=== PATIENT | male | born 1985 | race Caucasian/White ===

== ENCOUNTER 2016-07-07 15:09 | Emergency (ER) | payer SELFPAY ==
[2016-07-07 15:30] VITALS: BP 131/85
--- NOTE | 2016-07-07 16:22 | UC ---
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 Sx are improving today, but still feels very weak. 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 Has never had this severity before. - History Of Current Complaint Chief Complaint: UCUpperExtremity Stated Complaint: hand injury Time Seen by Provider: 07/07/16 16:03 Hx Obtained From: Patient ?: No Onset/Duration: Gradual Onset, Lasting Hours Severity Initially: Moderate Severity Currently: Mild Character Of Pain: Aching, Throbbing Aggravating Factor(s): Movement, Other - station detective Associated Signs And Symptoms: Positive: Weakness Related History: Dominant Hand Right - Allergies/Home Medications Allergies/Adverse Reactions: Allergies Allergy/AdvReac Type Severity Reaction Status Date / Time No Known Allergies Allergy Verified 10/02/15 15:27 PMH/Surg Hx/FS Hx/Imm Hx Endocrine History Of: Denies: Diabetes, Thyroid Disease Cardiovascular History Of: Denies: Cardiac Disorders, Hypertension Respiratory History Of: Denies: COPD, Asthma GI/ History Of: Reports: Gastroesophageal Reflux Denies: Ulcer - Surgical History Surgical History: Yes Surgery Procedure, Year, and Place: GALLBLADDER - Family History Known Family History: Positive: None, Unknown - Social History Occupation: Employed Full-time Alcohol Use: Occasionally Alcohol Amount: 1-2 beers Substance Use Type: None Smoking Status (MU): Former Smoker When Did the Patient Quit Smoking/Using Tobacco: 3 YRS AGO - Immunization History Most Recent Influenza Vaccination: has not had Most Recent Tetanus Shot: unsure Review of Systems Constitutional: Negative Skin: Negative Eyes: Negative ENT: Negative Respiratory: Negative Cardiovascular: Negative Gastrointestinal: Negative Genitourinary: Negative 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 - 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 Neurovascular: Negative Musculoskeletal: Negative Neurological: Negative Psychological: Negative All Other Systems Reviewed And Are Negative: Yes Physical Exam Triage Information Reviewed: Yes Appearance: Well-Appearing, No Pain Distress, Well-Nourished Vital Signs: Initial Vital Signs Temp 98.3 F 07/07/16 15:26 Pulse 68 07/07/16 15:26 Resp 18 07/07/16 15:26 BP 131/85 07/07/16 15:26 Pulse Ox 97 03/07/17 15:26 Vital Signs Reviewed: Yes Eye Exam: Normal Eyes: Positive: Conjunctiva Clear ENT Exam: Normal ENT: Positive: Normal ENT inspection, Hearing grossly normal, Pharynx normal, TMs normal Dental Exam: Normal Neck exam: Normal Neck: Positive: Supple, Nontender, No Lymphadenopathy Respiratory Exam: Normal Respiratory: Positive: Chest non-tender, Lungs clear, Normal breath sounds, No respiratory distress, No accessory muscle use Cardiovascular Exam: Normal Cardiovascular: Positive: RRR, No Murmur Musculoskeletal Exam: Other - pain in R forearm with use of flexor tendons Musculoskeletal: Positive: Strength 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 If you cannot return to your normal work by Wednesday, please contact the orthopedic referral listed here.
== END 2016-07-07 16:28 | disposition home or self-care (01) ==
LOC: UCEAST 15:09
DX: M77.9 Enthesopathy, unspecified (principal); M79.631 Pain in right forearm
CPT/HCPCS: 99211; G0463

== ENCOUNTER 2016-07-16 15:08 | Emergency (ER) | payer OTHER ==
[2016-07-16 15:23] VITALS: BP 115/80
[2016-07-16] MEDS ORDERED: Lidocaine 2% PF* 5 ML VIAL ONE (16:10)
--- NOTE | 2016-07-16 16:45 | UC ---
Skin Complaint HPI - HPI Summary HPI Summary: HAS HAD ABSCESS ON BACK OFR ABOUT 8 YEARS THAT REOCCURS AND RESOLVES. HAS HAD IT ONLY TREATED WITH ANTIBIOTICS IN [place]. NO FEVER. NO DISCHARGE. ABSCESS RETURNED AGAIN OVER LAST WEEK. - History of Current Complaint Chief Complaint: UCSkin Time Seen by Provider: 07/16/16 15:51 Stated Complaint: ABCESS ON BACK Hx Obtained From: Patient Onset/Duration: Gradual Onset, Lasting Weeks, Still Present Skin Exposure Onset/Duration: Weeks Ago Onset Severity: Mild Current Severity: Mild Location: Discrete - RIGHT BACK Character: Swelling, Redness, Raised, Painful Aggravating: Touch Alleviating: Nothing Associated Signs & Symptoms: Positive: Tenderness. Negative: Fever, Drainage, Red Streaks - Allergy/Home Medications Allergies/Adverse Reactions: Allergies Allergy/AdvReac Type Severity Reaction Status Date / Time No Known Allergies Allergy Verified 10/02/15 15:27 Home Medications: Home Medications Famotidine [Pepcid AC] 07/16/16 [History] Review of Systems Constitutional: Negative Skin: Other - ABSCESS RIGHT BACK Eyes: Negative ENT: Negative Respiratory: Negative Cardiovascular: Negative Gastrointestinal: Negative Genitourinary: Negative Motor: Negative Neurovascular: Negative Musculoskeletal: Negative Neurological: Negative Psychological: Negative All Other Systems Reviewed And Are Negative: Yes PMH/Surg Hx/FS Hx/Imm Hx Previously Healthy: Yes Endocrine History Of: Denies: Diabetes, Thyroid Disease Cardiovascular History Of: Denies: Cardiac Disorders, Hypertension Respiratory History Of: Denies: COPD, Asthma GI/ History Of: Reports: Gastroesophageal Reflux Denies: Ulcer - Surgical History Surgical History: Yes Surgery Procedure, Year, and Place: GALLBLADDER - Family History Known Family History: Positive: None, Unknown Negative: Diabetes, Other - NO MRSA - Social History Occupation: Employed Full-time Lives: With Family Alcohol Use: Occasionally Alcohol Amount: 1-2 beers Substance Use Type: Marijuana Smoking Status (MU): Former Smoker When Did the Patient Quit Smoking/Using Tobacco: 3 YRS AGO - Immunization History Most Recent Influenza Vaccination: has not had Most Recent Tetanus Shot: unsure Physical Exam Triage Information Reviewed: Yes Appearance: Well-Appearing, No Pain Distress, Well-Nourished Vital Signs: Initial Vital Signs Temp 97.0 F 07/16/16 15:14 Pulse 79 07/16/16 15:14 Resp 18 07/16/16 15:14 BP 115/80 07/16/16 15:14 Pulse Ox 98 07/16/16 15:14 Vital Signs Reviewed: Yes Eye Exam: Normal Eyes: Positive: Conjunctiva Clear ENT Exam: Normal ENT: Positive: Normal ENT inspection, Hearing grossly normal, TMs normal Dental Exam: Normal Neck exam: Normal Neck: Positive: Supple, Nontender, No Lymphadenopathy Respiratory Exam: Normal Respiratory: Positive: Chest non-tender, Lungs clear, Normal breath sounds, No respiratory distress, No accessory muscle use Cardiovascular Exam: Normal Cardiovascular: Positive: RRR, No Murmur, Pulses Normal Abdominal Exam: Normal Abdomen Description: Positive: Nontender, No Organomegaly Musculoskeletal Exam: Normal Neurological Exam: Normal Psychological Exam: Normal Skin: Positive: Other - 2CM X 2CM ABSCESS RIGHT BACK Course/Dx - Differential Diagnoses - Skin Complaint Differential Diagnoses: Abscess, Cellulitis, MRSA - Diagnoses Provider Diagnoses: SEBACEOUS CYST RIGHT BACK. INCISION AND DRAINAGE OF ABSCESS Procedures - Procedure Summary Procedure Summary: INCISION AND DRAINAGE OF RIGHT BACK ABSCESS, ABSCESS INCISED WITH #11 BLADE SCALPEL. PURULENT DISCHARGE EXPRESSED AND CULTURED. 3CM WICK APPLIED TO INCISED ABSCESS. Discharge - Discharge Plan Condition: Stable Disposition: HOME Prescriptions: Sulfamethox/Trimethoprim DS* [Bactrim DS 800/160 TAB*] 1 tab PO BID #20 tab Patient Education Materials: Abscess Incision and Drainage (ED), Epidermal Inclusion Cysts (ED), Abscess Follow-up (ED) Referrals: [facility] [place] [facility] [Outside] No Primary Care Phys,NOPCP [Primary Care Provider] - Additional Instructions: COME BACK IN THREE DAYS TO HAVE ABSCESS EVALUATED AND WICK POSSIBLY REMOVED Images Front/Back of Body, Lg ([place]): 1 - INDURATED ABSCESS WITH FLUCTUANT CENTER
== END 2016-07-16 17:14 | disposition home or self-care (01) ==
LOC: UCEAST 15:08
DX: L72.3 Sebaceous cyst (principal); Z87.891 Personal history of nicotine dependence
CPT/HCPCS: 10060; 87070; 87205; 87640; 87641; 99212; G0463

== ENCOUNTER 2016-07-19 09:16 | Emergency (ER) | payer OTHER ==
[2016-07-19 09:31] VITALS: BP 122/78
--- NOTE | 2016-07-19 10:49 | UC ---
HPI Wound/Suture Re-check - HPI Summary HPI Summary: ABSCESS ON BACK 07/16/16 INCISED, DRAINED, AND WICK PLACED. PUT ON BACTRIM, BUT CULTURE SHOWED NO MRSA. ANOTHER PROVIDER CALLED AND TOLD PATIENT TO STOP TAKING BACTRIM. NO COMPLICATIONS WITH INCISION. NO FEVER. SOME REDNESS AT WOUND SITE, WICK STILL IN PLACE. - History Of Current Complaint Chief Complaint: UCSkin Stated Complaint: WOUND CHECK Time Seen by Provider: 07/19/16 10:07 Hx Obtained From: Patient Onset/Duration: Gradual Onset, Lasting Weeks, Still Present Severity: Moderate - Allergies/Home Medications Allergies/Adverse Reactions: Allergies Allergy/AdvReac Type Severity Reaction Status Date / Time No Known Allergies Allergy Verified 07/19/16 09:24 PMH/Surg Hx/FS Hx/Imm Hx Previously Healthy: Yes Endocrine History Of: Denies: Diabetes, Thyroid Disease Cardiovascular History Of: Denies: Cardiac Disorders, Hypertension Respiratory History Of: Denies: COPD, Asthma GI/ History Of: Reports: Gastroesophageal Reflux Denies: Ulcer - Surgical History Surgical History: Yes Surgery Procedure, Year, and Place: GALLBLADDER - Family History Known Family History: Positive: None, Unknown Negative: Diabetes, Other - NO MRSA - Social History Occupation: Employed Full-time Lives: With Family Alcohol Use: Occasionally Alcohol Amount: 1-2 beers Substance Use Type: Marijuana Smoking Status (MU): Former Smoker When Did the Patient Quit Smoking/Using Tobacco: 3 YRS AGO - Immunization History Most Recent Influenza Vaccination: has not had Most Recent Tetanus Shot: unsure Review of Systems Constitutional: Negative Skin: Other - DRAINAGE AND MILD REDNESS AT WOUND SITE Eyes: Negative ENT: Negative Respiratory: Negative Cardiovascular: Negative Gastrointestinal: Negative Genitourinary: Negative Motor: Negative Neurovascular: Negative Musculoskeletal: Negative Neurological: Negative Psychological: Negative All Other Systems Reviewed And Are Negative: Yes Physical Exam Triage Information Reviewed: Yes Appearance: Well-Appearing, No Pain Distress, Well-Nourished Vital Signs: Initial Vital Signs Temp 97.9 F 07/19/16 09:26 Pulse 70 07/19/16 09:26 Resp 16 07/19/16 09:26 BP 122/78 07/19/16 09:26 Pulse Ox 96 07/19/16 09:26 Vital Signs Reviewed: Yes Eye Exam: Normal ENT Exam: Normal ENT: Positive: Normal ENT inspection, Hearing grossly normal, TMs normal Dental Exam: Normal Neck exam: Normal Neck: Positive: Supple, Nontender Respiratory Exam: Normal Respiratory: Positive: Chest non-tender, Lungs clear, Normal breath sounds Cardiovascular Exam: Normal Cardiovascular: Positive: RRR, No Murmur, Pulses Normal Abdominal Exam: Normal Abdomen Description: Positive: Nontender, No Organomegaly Musculoskeletal Exam: Normal Neurological Exam: Normal Psychological Exam: Normal Psychological: Positive: Normal Response To Family Skin: Positive: Other - WICK REMOVED WITH SOME PURULENCE COLLECTED ON WICK. SMALL MARGIN OF ERRETHEMA AROUND INCISION SITE. Course/Dx - Differential Dx - Laceration/Wound Differential Diagnoses: Abscess, Healing Wound Provider Diagnoses: BACK ABSCESS STATUS POST INCISION AND DRAINAGE. MILD CELLULITIS ON BACK SURROUNDING ABSCESS Discharge - Discharge Plan Condition: Stable Disposition: HOME Prescriptions: Cephalexin CAP* [Keflex CAP*] 500 mg PO QID #28 cap Patient Education Materials: Cellulitis (ED), Abscess (ED), Abscess Follow-up ( ED) [place]errals[place] [facility] [place]] No Primary Care Phys,NOPCP [Primary Care Provider] -
== END 2016-07-19 10:37 | disposition home or self-care (01) ==
LOC: UCEAST 09:16
DX: L03.312 Cellulitis of back [any part except buttock and flank] (principal); Z87.891 Personal history of nicotine dependence; Z98.890 Other specified postprocedural states
CPT/HCPCS: 99212; G0463

== ENCOUNTER 2016-08-27 07:11 | Emergency (ER) | payer OTHER ==
[2016-08-27 07:24] VITALS: BP 139/77
--- NOTE | 2016-08-27 07:49 | RAD ---
INDICATION: Fall. Right ankle pain COMPARISON: None TECHNIQUE: AP, lateral, and oblique views were obtained. FINDINGS: The bony structures, joint spaces, and soft tissues are normal for age. IMPRESSION: NEGATIVE EXAMINATION.
--- NOTE | 2016-08-27 07:50 | RAD ---
INDICATION: Fall right foot pain COMPARISON: None TECHNIQUE: AP, lateral, and oblique views were obtained. FINDINGS: The bony structures, joint spaces, and soft tissues are normal for age. IMPRESSION: NEGATIVE EXAMINATION.
--- NOTE | 2016-08-27 08:21 | UC ---
Luis Borjas Billy, scribed for IsaiMagdy merrill MD on 08/27/16 at 0758 . Lower Extremity/Ankle HPI - HPI Summary HPI Summary: In Room Note: This is a 31 year-old male coming to [facility] for evaluation of right ankle and foot pain after a mechanical fall down the stairs at 0630 today. He denies any LOC or truama to the head, neck, trunk, or back. His right lower extremity pain is worse with any movement or weightbearing. He states that he stands for long periods of time at work. Note: Vital signs stable, afebrile. Right ankle injury. Systolic BP 139. Pulse ox 97 on room air. Nurse's Note: Pt he fell down the stairs approx 0630 today. Pt complains of pain in right foot/ankle. Pt denies any LOC or hitting head, neck or back. - History of Current Complaint Chief Complaint: UCLowerExtremity Stated Complaint: FELL-RT ANKLE,FOOT PAIN Time Seen by Provider: 08/27/16 07:12 Hx Obtained From: Patient Onset/Duration: Sudden Onset, Lasting Hours, Still Present Severity Initially: Moderate Severity Currently: Moderate Pain Intensity: 9 Pain Scale Used: 0-10 Numeric Aggravating Factor(s): Standing, Ambulation Alleviating Factor(s): Rest, Elevation Able to Bear Weight: Yes - Allergies/Home Medications Allergies/Adverse Reactions: Allergies Allergy/AdvReac Type Severity Reaction Status Date / Time No Known Allergies Allergy Verified 08/27/16 07:17 PMH/Surg Hx/FS Hx/Imm Hx - Additional Past Medical History Additional PMH: Previous fractures to the right leg. Endocrine History Of: Denies: Diabetes, Thyroid Disease Cardiovascular History Of: Denies: Cardiac Disorders, Hypertension Respiratory History Of: Denies: COPD, Asthma GI/ History Of: Reports: Gastroesophageal Reflux Denies: Ulcer - Surgical History Surgical History: Yes Surgery Procedure, Year, and Place: GALLBLADDER - Family History Known Family History: Positive: Cardiac Disease, Diabetes - Social History Alcohol Use: Occasionally Alcohol Amount: 1-2 beers Substance Use Type: Marijuana Smoking Status (MU): Former Smoker When Did the Patient Quit Smoking/Using Tobacco: 3 YRS AGO - Immunization History Most Recent Influenza Vaccination: has not had Most Recent Tetanus Shot: unsure Review of Systems Constitutional: Negative Skin: Negative Eyes: Negative ENT: Negative Respiratory: Negative Cardiovascular: Negative Gastrointestinal: Negative Genitourinary: Negative Motor: Negative Neurovascular: Negative Musculoskeletal: Arthralgia Neurological: Negative Psychological: Negative All Other Systems Reviewed And Are Negative: Yes Physical Exam Triage Information Reviewed: Yes Appearance: Well-Appearing, No Pain Distress, Well-Nourished Vital Signs: Initial Vital Signs Temp 97.4 F 08/27/16 07:20 Pulse 62 08/27/16 07:20 Resp 16 08/27/16 07:20 BP 139/77 08/27/16 07:20 Pulse Ox 97 08/27/16 07:20 Vital Signs Reviewed: Yes Eyes: Positive: Conjunctiva Clear ENT: Positive: Hearing grossly normal, Pharynx normal, TMs normal. Negative: Muffled/hoarse voice Neck: Positive: Supple, No Lymphadenopathy Respiratory: Positive: Chest non-tender, Lungs clear, Normal breath sounds, No respiratory distress Cardiovascular: Positive: RRR, No Murmur Abdomen Description: Positive: Nontender, No Organomegaly, Soft Bowel Sounds: Positive: Present Musculoskeletal: Positive: Strength Intact, Other: - Negative anterior drawer sign. Swelling in the lateral aspect of right ankle. No pain in the fifth metatarsal. Mild discomfort to anterior talofibular ligament Neurological: Positive: Alert Psychological: Positive: Age Appropriate Behavior Skin: Negative: rashes Diagnostics - Radiology Right Foot X-ray Xray Interpretation: No Acute Changes Radiology Interpretation Completed By: Radiologist Right Ankle X-ray Xray Interpretation: No Acute Changes Radiology Interpretation Completed By: Radiologist Lower Extremity Course/Dx - Course Course Of Treatment: This is a 31 year-old male coming to [facility] for evaluation of right ankle and foot pain after a mechanical fall today. X-rays of the foot and ankle show no acute findings. Examination is consistent with ankle sprain, which was discussed with the patient. He will be using crutches and a gel cast and slowly advance activity as tolerateD, and discharged home. Medications have been included in the original chart and reviewed. Patient is Urgent/ Emergent. BP elevated due to current condition w/o HTN in PMH. - Differential Dx/Diagnosis Provider Diagnoses: first degree ankle sprain Discharge - Discharge Plan Condition: Stable Disposition: HOME Patient Education Materials: Ankle Sprain (ED) Forms: *Work Release Referrals: [facility] [place] [facility] [Outside] Additional Instructions: As we discussed: You have sprained your ankle. Ibuprofen, 400mg, and acetaminophen 1000mg together can be used for pain. Up to four times a day. Use gelcast, emma, crutches. Add weight as you become more comfortable. After standing, elevate, ice, rest. "If it hurts, don't do it." The documentation as recorded by the leannibLuis crowe Billy accurately reflects the service I personally performed and the decisions made by me, Magdy Butt MD.
== END 2016-08-27 08:31 | disposition home or self-care (01) ==
LOC: UCEAST 07:11
DX: S93.401A Sprain of unspecified ligament of right ankle, initial encounter (principal); W10.9XXA Fall (on) (from) unspecified stairs and steps, initial encounter; Y93.9 Activity, unspecified; Y92.9 Unspecified place or not applicable; K21.9 Gastro-esophageal reflux disease without esophagitis; Z90.49 Acquired absence of other specified parts of digestive tract; Z87.891 Personal history of nicotine dependence
CPT/HCPCS: 99213; G0463

== ENCOUNTER 2016-11-18 07:12 | Emergency (ER) | payer OTHER ==
[2016-11-18 07:31] VITALS: BP 111/64
--- NOTE | 2016-11-18 08:04 | UC ---
Lower Extremity/Ankle HPI - HPI Summary HPI Summary: PT HAS HAD INTERMITTENT RIGHT LOWER LEG PAIN SINCE INJURY 2006. THIS MORNING WOKE UP WITH SEVERE LEG CRAMP/MUSCLE SPASM. RIGHT CALF WAS FIRM AND ANKLE WAS STUCK IN EXTENSION. PT REPORTS HE WAS UNABLE TO LOOSEN THE SPASM AND WAS SCARED SO CAME DIRECTLY HERE. BROTHER DROVE HIM. SINCE BEING HERE THE SPASM HAS LET UP. HE STILL HAS RESIDUAL SORENESS TO THE CALF. NO RECENT TRAVEL. NON SMOKER. - History of Current Complaint Chief Complaint: UCLowerExtremity Stated Complaint: MUSCLE PAIN Time Seen by Provider: 11/18/16 07:53 Hx Obtained From: Patient Onset/Duration: Sudden Onset, Lasting Hours, Resolved Severity Initially: Moderate Severity Currently: Mild Pain Intensity: 4 Pain Scale Used: 0-10 Numeric Aggravating Factor(s): Ambulation Alleviating Factor(s): Rest Able to Bear Weight: Yes - Allergies/Home Medications Allergies/Adverse Reactions: Allergies Allergy/AdvReac Type Severity Reaction Status Date / Time No Known Allergies Allergy Verified 11/18/16 07:31 Home Medications: Home Medications NK [No Home Medications Reported] 11/18/16 [History Confirmed 11/18/16] PMH/Surg Hx/FS Hx/Imm Hx Previously Healthy: Yes - Surgical History Surgical History: Yes Surgery Procedure, Year, and Place: GALLBLADDER - Family History Known Family History: Positive: Unknown, Cardiac Disease, Diabetes Negative: Other - NO MRSA - Social History Alcohol Use: Rare Alcohol Amount: 1-2 beers Substance Use Type: Marijuana Substance Use Comment - Amount & Last Used: weekly usage Smoking Status (MU): Former Smoker Type: Cigarettes Amount Used/How Often: 1 ppd Length of Time of Smoking/Using Tobacco: 10 yrs Have You Smoked in the Last Year: No When Did the Patient Quit Smoking/Using Tobacco: 2011 - Immunization History Most Recent Influenza Vaccination: has not had Most Recent Tetanus Shot: unsure Review of Systems Constitutional: Negative Skin: Negative Respiratory: Negative Cardiovascular: Negative Gastrointestinal: Negative Musculoskeletal: Calf Tenderness, Myalgia All Other Systems Reviewed And Are Negative: Yes Physical Exam Triage Information Reviewed: Yes Appearance: Well-Appearing, No Pain Distress, Well-Nourished Vital Signs: Initial Vital Signs Temp 97.6 F 11/18/16 07:28 Pulse 71 11/18/16 07:28 Resp 16 11/18/16 07:28 BP 111/64 11/18/16 07:28 Pulse Ox 98 11/18/16 07:28 Vital Signs Reviewed: Yes Eyes: Positive: Conjunctiva Clear ENT: Positive: Hearing grossly normal Neck: Positive: Supple Respiratory Exam: Normal Cardiovascular Exam: Normal Abdomen Description: Positive: Soft Musculoskeletal: Positive: No Edema, Other: - RIGHT CALF TENDERNESS. 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 Neurological: Positive: Alert Psychological: Positive: Age Appropriate Behavior Skin: Negative: rashes Diagnostics - Radiology RLE US Xray Interpretation: No Acute Changes Radiology Interpretation Completed By: Radiologist Lower Extremity Course/Dx - Differential Dx/Diagnosis Provider Diagnoses: MUSCLE CRAMP RIGHT CALF Discharge - Discharge Plan Condition: Stable Disposition: HOME Patient Education Materials: Leg Cramps (ED) Forms: *Work Release Referrals: Jabier Dickerson MD [Medical Doctor] - If Needed Additional Instructions: ULTRASOUND NEGATIVE FOR BLOOD CLOT. REST, STRETCH, MASSAGE, USE HEAT. SEEK FOLLOW-UP IF NOT CONTINUING TO IMPROVE. OTC IBUPROFEN NEEDED FOR DISCOMFORT.
--- NOTE | 2016-11-18 10:12 | RAD ---
INDICATION: Right calf pain. COMPARISON: There are no prior studies available for comparison. TECHNIQUE: Multiple real-time, color flow and Doppler tracings of the right lower extremity were obtained. FINDINGS: The common femoral, femoral, profunda femoral and popliteal veins all demonstrate normal compressibility, augmentation with compression and phasic response with respiration. The posterior tibial and peroneal veins demonstrate normal compressibility and augmentation with compression. IMPRESSION: NO EVIDENCE FOR DEEP VENOUS THROMBOSIS.
== END 2016-11-18 10:42 | disposition home or self-care (01) ==
LOC: UCEAST 07:12
DX: R25.2 Cramp and spasm (principal); Z87.891 Personal history of nicotine dependence
CPT/HCPCS: 99211; G0463

== ENCOUNTER 2016-12-30 08:41 | Emergency (ER) | payer OTHER ==
[2016-12-30 08:52] VITALS: BP 92/61
--- NOTE | 2016-12-30 08:56 | UC ---
Eye Complaint HPI - HPI Summary HPI Summary: 31 YEAR OLD MALE PRESENTS WITH COMPLAINS OF LEFT EYE PAIN WITH NO TRAUMA. ON A SIDE NOTE THE PATIENT DOES WEAR SAFETY GOGGLES. - History of Current Complaint Chief Complaint: UCEye Stated Complaint: EYE PAIN Time Seen by Provider: 12/30/16 08:54 Hx Obtained From: Patient Onset/Duration: Sudden Onset Severity Initially: Moderate Severity Currently: Moderate Pain Scale Used: 0-10 Numeric - 4 - Allergies/Home Medications Allergies/Adverse Reactions: Allergies Allergy/AdvReac Type Severity Reaction Status Date / Time No Known Allergies Allergy Verified 11/18/16 07:31 PMH/Surg Hx/FS Hx/Imm Hx Previously Healthy: Yes - Surgical History Surgical History: Yes Surgery Procedure, Year, and Place: GALLBLADDER - Family History Known Family History: Positive: None, Unknown, Cardiac Disease, Diabetes Negative: Other - NO MRSA - Social History Alcohol Use: Rare Alcohol Amount: 1-2 beers Substance Use Type: Marijuana Substance Use Comment - Amount & Last Used: weekly usage Smoking Status (MU): Former Smoker Type: Cigarettes Amount Used/How Often: 1 ppd Length of Time of Smoking/Using Tobacco: 10 yrs Have You Smoked in the Last Year: No When Did the Patient Quit Smoking/Using Tobacco: 2011 - Immunization History Most Recent Influenza Vaccination: has not had Most Recent Tetanus Shot: unsure Review of Systems Constitutional: Negative Skin: Negative Eyes: Eye Redness, Other - RIGHT FACIAL/ORBITAL PAIN ENT: Negative Respiratory: Negative Cardiovascular: Negative Gastrointestinal: Negative Genitourinary: Negative Motor: Negative Neurovascular: Negative Musculoskeletal: Negative Neurological: Negative Psychological: Negative All Other Systems Reviewed And Are Negative: Yes Physical Exam Triage Information Reviewed: Yes Vital Signs: Initial Vital Signs Temp 37.1 C 12/30/16 08:45 Pulse 65 12/30/16 08:45 Resp 16 12/30/16 08:45 BP 92/61 12/30/16 08:45 Pulse Ox 98 12/30/16 08:45 Eye Exam: Normal Eyes: Positive: Other: - EYE PAIN ENT Exam: Normal Dental Exam: Normal Neck exam: Normal Neck: Positive: 1 Respiratory Exam: Normal Cardiovascular Exam: Normal Abdominal Exam: Normal Musculoskeletal Exam: Normal Neurological Exam: Normal Psychological Exam: Normal Skin Exam: Normal Eye Complaint Course/Dx - Differential Dx/Diagnosis Provider Diagnoses: RIGHT EYE PAIN. RIGHT ORBITAL PAIN Discharge - Discharge Plan Condition: Stable Disposition: HOME Prescriptions: Polymyx/Trimethoprim OPTH* [Polytrim OPHTH*] 1 drop RIGHT EYE Q3H #1 btl Referrals: No Primary Care Phys,NOPCP [Primary Care Provider] - Mervin Guerrero MD [Medical Doctor] -
== END 2016-12-30 09:07 | disposition home or self-care (01) ==
LOC: UCEAST 08:41
DX: H57.11 Ocular pain, right eye (principal); Z87.891 Personal history of nicotine dependence
CPT/HCPCS: 99212; G0463

== ENCOUNTER 2017-06-03 11:44 | Emergency (ER) | payer OTHER ==
[2017-06-03 14:04] VITALS: BP 117/78
[2017-06-03] MEDS ORDERED: Ketorolac INJ* 60 MG/2 ML VIAL IM ONE (14:22)
--- NOTE | 2017-06-04 21:59 | UC ---
Myrna Borjas Nilda, scribed for Justus Colbert MD on 06/03/17 at 1421 . Back Pain HPI - HPI Summary HPI Summary: This patient is a 32 year old M presenting to [facility] [place] with a chief complaint of constant upper back pain for the past 4 days. Pt notes he woke up on the couch with the pain. The patient rates the pain 5/10 in severity. Symptoms aggravated by movement and palpation and alleviated by rest. Patient denies abnormal urinary symptoms, CP, and SOB. Pt states he does no heavy lifting but tedious and repetitive movements. Pt states hes on no medications. - History of Current Complaint Chief Complaint: UCBackPain Stated Complaint: BACK PAIN Time Seen by Provider: 06/03/17 13:57 Hx Obtained From: Patient Onset/Duration: Sudden Onset, Lasting Days, Still Present Timing: Constant Severity Currently: Moderate Pain Intensity: 5 Pain Scale Used: 0-10 Numeric Back Pain: Is Discrete @ - upper back Aggravating Factor(s): Movement, Other - palpation Alleviating Factor(s): Rest Associated Signs And Symptoms: Positive: Other - denies abnormal urinary symptoms, CP, and SOB. - Allergies/Home Medications Allergies/Adverse Reactions: Allergies Allergy/AdvReac Type Severity Reaction Status Date / Time No Known Allergies Allergy Verified 06/03/17 13:59 Home Medications: Home Medications Naproxen Sodium [Naproxen Sodium 220 mg cap] 2 tab PO Q12HR PRN 06/03/17 [ History Confirmed 06/03/17] PMH/Surg Hx/FS Hx/Imm Hx Previously Healthy: Yes - Surgical History Surgical History: Yes Surgery Procedure, Year, and Place: GALLBLADDER - Family History Known Family History: Positive: Cardiac Disease, Diabetes Negative: Other - NO MRSA - Social History Alcohol Use: Rare Alcohol Amount: 1-2 beers Substance Use Type: Marijuana Substance Use Comment - Amount & Last Used: occassionally Smoking Status (MU): Former Smoker Type: Cigarettes Amount Used/How Often: 1 ppd Length of Time of Smoking/Using Tobacco: 10 yrs Have You Smoked in the Last Year: No When Did the Patient Quit Smoking/Using Tobacco: 2011 - Immunization History Most Recent Influenza Vaccination: has not had Most Recent Tetanus Shot: unsure Review of Systems Respiratory: Other - negative SOB Cardiovascular: Other - negative CP Genitourinary: Other - negative abnormal urinary symptoms Musculoskeletal: Other: - upper back pain All Other Systems Reviewed And Are Negative: Yes Physical Exam Triage Information Reviewed: Yes Vital Signs: Initial Vital Signs Temp 97.7 F 06/03/17 13:59 Pulse 59 06/03/17 13:59 Resp 16 06/03/17 13:59 BP 117/78 06/03/17 13:59 Pulse Ox 99 06/03/17 13:59 Vital Signs Reviewed: Yes - Additional Comments VITAL SIGNS: Reviewed. GENERAL: Patient is a well developed and nourished male who is sitting comfortable in the stretcher. Patient is not in any acute respiratory distress. HEAD AND FACE: Normacephalic and atraumatic. EYES: PERRLA, EOMI x 2, EARS: Hearing grossly intact. MOUTH: Oropharynx within normal limits. NECK: Supple, trachea is midline, no adenopathy, no JVD, no carotid bruit, no c- spine tenderness, neck with full ROM. CHEST: Symmetric, no tenderness at palpation LUNGS: CTA B/L. No wheezing or crackles. CVS: RRR, S1 and S2 present, no murmurs or gallops appreciated. ABDOMEN: Soft, NT, No distention. Normal BS. EXTREMITIES: FROM in all major joints, no edema, no cyanosis or clubbing. BACK: positive left paraspinal muscle tenderness in the T spine NEURO: Alert and oriented x 3. No acute neurological deficits. Speech is normal and follows commands. SKIN: Dry and warm Back Pain Course/Dx - Course Course Of Treatment: This patient is a 32 year old M presenting to [facility] [place] with a chief complaint of constant upper back pain for the past 4 days. Pt notes he woke up on the couch with the pain. The patient rates the pain 5/10 in severity. Symptoms aggravated by movement and palpation and alleviated by rest. Patient denies abnormal urinary symptoms, CP, and SOB. Pt states he does no heavy lifting but tedious and repetitive movements. Pt states hes on no medications. He was given Toradol in UC. Pt is stable will be D/C with a Dx of Back pain and a prescription for Robaxin, Naproxen, and Ultram. I discussed all the findings and test results with the patient. Pt was instructed to return to the urgent care or go to ER immediately if any of the symptoms return or worsens. Plan of care was discussed with the patient and pt understands and agrees. All questions were answered to patient satisfaction. There were no further complaints or concerns. - Differential Dx/Diagnosis Differential Diagnosis/HQI/PQRI: Fracture, Herniated Disc, Strain, Sprain Provider Diagnoses: back pain Discharge - Discharge Plan Condition: Stable Disposition: HOME Prescriptions: Methocarbamol [Robaxin-750 MG TAB] 750 mg PO TID #9 tab Naproxen [Naproxen DR 500 MG TAB] 500 mg PO BID #20 tab traMADol TAB* [Ultram*] 50 mg PO Q6HR PRN #12 tab MDD 4 PRN Reason: Pain Patient Education Materials: Back Pain (ED) Forms: *Work Release Referrals: [facility] [Outside] No Primary Care Phys,NOPCP [Primary Care Provider] - Additional Instructions: Do not drive when taking Ultram Take medications as indicated The documentation as recorded by the Myrna rob Nilda accurately reflects the service I personally performed and the decisions made by Filemon thomas Walter, MD.
== END 2017-06-03 14:36 | disposition home or self-care (01) ==
LOC: UCEAST 11:44
DX: M54.6 Pain in thoracic spine (principal); Z90.49 Acquired absence of other specified parts of digestive tract; F12.90 Cannabis use, unspecified, uncomplicated; Z87.891 Personal history of nicotine dependence
CPT/HCPCS: 99212; G0463; J1885

== ENCOUNTER 2017-06-23 11:05 | Emergency (ER) | payer OTHER | END 2017-06-23 11:55 | disposition left against medical advice (07) | LOC: UCEAST 11:05 | DX: S69.90XA Unspecified injury of unspecified wrist, hand and finger(s), initial encounter (principal); X58.XXXA Exposure to other specified factors, initial encounter; Y93.9 Activity, unspecified; Y92.9 Unspecified place or not applicable; Z53.21 Procedure and treatment not carried out due to patient leaving prior to being seen by health care provider ==

== ENCOUNTER 2017-06-23 16:26 | Emergency (ER) | payer OTHER ==
[2017-06-23 17:21] VITALS: BP 117/81
--- NOTE | 2017-06-23 18:14 | UC ---
Hand/Wrist HPI - HPI Summary HPI Summary: right thumb pain and pain and swelling in web space---no injury or fb. 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 and thumbs hurts worse after work - History Of Current Complaint Chief Complaint: UCUpperExtremity Stated Complaint: HAND PAIN Time Seen by Provider: 06/23/17 18:06 Hx Obtained From: Patient ?: No Mechanism Of Injury: repeatetive stress Onset/Duration: Gradual Onset, Lasting Weeks, Still Present Severity Initially: Moderate Severity Currently: Moderate Pain Intensity: 2 Pain Scale Used: 0-10 Numeric Character Of Pain: Aching, Throbbing, Stiffness Aggravating Factor(s): Movement, Lifting Alleviating Factor(s): Rest Associated Signs And Symptoms: Positive: Swelling Related History: Dominant Hand Right - Allergies/Home Medications Allergies/Adverse Reactions: Allergies Allergy/AdvReac Type Severity Reaction Status Date / Time No Known Allergies Allergy Verified 06/23/17 17:12 PMH/Surg Hx/FS Hx/Imm Hx Previously Healthy: Yes - Surgical History Surgical History: Yes Surgery Procedure, Year, and Place: GALLBLADDER removed - Family History Known Family History: Positive: None, Unknown, Cardiac Disease, Diabetes Negative: Other - NO MRSA - Social History Occupation: Employed Full-time Lives: With Family Alcohol Use: Rare Alcohol Amount: 1-2 beers Substance Use Type: Marijuana Substance Use Comment - Amount & Last Used: occassionally Smoking Status (MU): Former Smoker Type: Cigarettes Amount Used/How Often: 1 ppd Length of Time of Smoking/Using Tobacco: 10 yrs Have You Smoked in the Last Year: No When Did the Patient Quit Smoking/Using Tobacco: 2011 - Immunization History Most Recent Influenza Vaccination: has not had Most Recent Tetanus Shot: unsure Review of Systems Constitutional: Negative Skin: Negative Eyes: Negative ENT: Negative Respiratory: Negative Cardiovascular: Negative Gastrointestinal: Negative Genitourinary: Negative Motor: Negative Neurovascular: Negative Musculoskeletal: Arthralgia - right thumb and 1st mc area Neurological: Negative Psychological: Negative Is Patient Immunocompromised?: No All Other Systems Reviewed And Are Negative: Yes Physical Exam Triage Information Reviewed: Yes Appearance: Well-Appearing, No Pain Distress, Well-Nourished Vital Signs: Initial Vital Signs Temp 98.9 F 06/23/17 17:13 Pulse 59 06/23/17 17:13 Resp 16 06/23/17 17:13 BP 117/81 06/23/17 17:13 Pulse Ox 100 06/23/17 17:13 Vital Signs Reviewed: Yes Eye Exam: Normal Eyes: Positive: Conjunctiva Clear ENT Exam: Normal ENT: Positive: Normal ENT inspection, Hearing grossly normal. Negative: Nasal congestion, Nasal drainage, Trismus, Muffled voice, Hoarse voice, Dental tenderness Dental Exam: Normal Neck exam: Normal Neck: Positive: Supple, Nontender Respiratory Exam: Normal Respiratory: Positive: No respiratory distress, No accessory muscle use Cardiovascular Exam: Normal Cardiovascular: Positive: Pulses Normal, Brisk Capillary Refill Musculoskeletal Exam: Normal Musculoskeletal: Positive: Strength Intact, ROM Intact, No Edema Neurological Exam: Normal Neurological: Positive: Alert, Muscle Tone Normal Psychological Exam: Normal Skin Exam: Normal Hand/Wrist Course/Dx - Course Course Of Treatment: NSAID, thumb spica, follow with pcp or ortho - Differential Dx/Diagnosis Provider Diagnoses: right thumb tendonitis Discharge - Discharge Plan Condition: Stable Disposition: HOME Prescriptions: Naproxen [Naproxen 500 mg] 500 mg PO BID #20 tablet Patient Education Materials: Tendinitis (ED) Forms: *Work Release Referrals: Jabier Dickerson MD [Medical Doctor] - If Needed
== END 2017-06-23 18:30 | disposition home or self-care (01) ==
LOC: UCEAST 16:26
DX: M77.9 Enthesopathy, unspecified (principal); Z87.891 Personal history of nicotine dependence
CPT/HCPCS: 99212; G0463

== ENCOUNTER 2017-08-18 08:29 | Emergency (ER) | payer OTHER ==
[2017-08-18 08:45] VITALS: BP 121/78
[2017-08-18] MEDS ORDERED: Lidocaine 2% VISCOUS* 15 ML UDC PO ONE (09:02)
[2017-08-18] MEDS ORDERED: Al Hydrox/Mg Hydrox/Simet LIQ* 30 ML UDC PO ONE (09:02)
--- NOTE | 2017-08-18 09:09 | UC ---
Miguelina Borjas Julia, scribed for Lady Bustillos MD on 08/18/17 at 0852 . Abdominal Pain Male HPI - HPI Summary HPI Summary: This patient is a 32 year old M presenting to [facility] with a chief complaint of sudden stabbing and pressure upper abdominal pain since 08:00 this morning while at work. Pt states that it radiates diffusely to his RUQ and then into chest briefly. Patient reports intermittent nausea and belching with little relief. Symptoms unchanged by movement. Patient denies vomiting. Pt with a h/o reflux, states this feels slightly similar. No sob, diaphoresis, no back pain. pt had normal BM yesterday. Pt takes antacid intermittently, none today. The patient rates the pain 6/10 in severity. Had a normal BM last night. Took some TUMS yesterday, but has not had any today. He has not had any food today, and does not typically eat breakfast. He denies a bad taste in his mouth with belching. Pt has hx of cholecystectomy roughly 7 years ago and GERD. Pt states had similar symptoms following his cholecystecomy 10 years ago - unknown diagnosis. Pt vapes - no tobacco > 1 year. No h/o HTN, chol, cardiac dx pt's medications reviewed this visit - History of Current Complaint Chief Complaint: UCAbdominalPain Stated Complaint: ABDOMINAL PAIN Time Seen by Provider: 08/18/17 08:45 Hx Obtained From: Patient Onset/Duration: Sudden Onset, Still Present Severity Initially: Moderate Severity Currently: Severe Pain Intensity: 6 Pain Scale Used: 0-10 Numeric Location: Diffuse - upper abdomen, Epigastric Radiates: Yes Character: Other - stabbing, burning, and pressure Aggravating Factor(s): Nothing Alleviating Factor(s): Other - belching Associated Signs And Symptoms: Positive: Nausea. 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 Lives: Alone Alcohol Use: Rare Alcohol Amount: 1-2 beers Substance Use Type: Marijuana Substance Use Comment - Amount & Last Used: occassionally Smoking Status (MU): Former Smoker - vapes Type: Cigarettes Amount Used/How Often: 1 ppd Length of Time of Smoking/Using Tobacco: 10 yrs Have You Smoked in the Last Year: No When Did the Patient Quit Smoking/Using Tobacco: 2011 - Immunization History Most Recent Influenza Vaccination: has not had Most Recent Tetanus Shot: unsure Review of Systems Constitutional: Negative Skin: Negative Eyes: Negative ENT: Negative Respiratory: Negative Cardiovascular: Chest Pain - intermittent, epigastric burning Gastrointestinal: Negative - vomiting diarrhea, Abdominal Pain, Nausea, Other - belching Musculoskeletal: Negative - back pain All Other Systems Reviewed And Are Negative: Yes Physical Exam Triage Information Reviewed: Yes Appearance: Well-Nourished, Pain Distress Vital Signs: Initial Vital Signs Temp 97.4 F 08/18/17 08:37 Pulse 73 08/18/17 08:37 Resp 18 08/18/17 08:37 BP 121/78 08/18/17 08:37 Pulse Ox 99 08/18/17 08:37 Vital Signs Reviewed: Yes Eye Exam: Normal Eyes: Positive: Conjunctiva Clear ENT Exam: Normal ENT: Positive: Normal ENT inspection, Hearing grossly normal, TMs normal Dental Exam: Normal Neck exam: Normal Neck: Positive: Supple, Nontender, No Lymphadenopathy Respiratory Exam: Normal Respiratory: Positive: Chest non-tender, Lungs clear, Normal breath sounds, No respiratory distress, No accessory muscle use Cardiovascular Exam: Normal Cardiovascular: Positive: RRR, No Murmur Abdomen Description: Positive: Other: - abd soft + epigatric, LUQ pain with deep palp no guarding, no rebound + BS. Negative: Nontender - epigastric luq with deep palp Bowel Sounds: Positive: Present Musculoskeletal Exam: Normal Musculoskeletal: Positive: Strength Intact Neurological Exam: Normal Neurological: Positive: Alert Psychological Exam: Normal Psychological: Positive: Normal Response To Family Skin Exam: Normal Diagnostics - EKG Cardiac Rate: Bradycardia - 53, sinus Cardiac Rhythm: Sinus: Normal Ectopy: None ST Segment: Non-Specific - mild elevation 2, AvF no reciprocal changes - concave up, suspect early re Re-Evaluation - Re-Evaluation 1 Re-Evaluation Time: 09:25 Change: Worse - Pain has slightly intensified following the GI cocktail. Pt position of comfort supine. Pt reports mouth is numb. D/w pt limited resourses at - recommend to ED for futher eval - consider pancreatitis in differential. Will check EKG although low suspiciion for cardiac (no htn, chol , fam hx + previous tobacco use) Recommended going to the Emergency Department - pt would like to drive self - expressed concern regarding discomfort 2 Re-Evaluation Time: 09:40 Comment: REview of EKG =Pt with slight ST elevateion 2, avF - no reciprocal changes, concave up - suspect early re-polarization - d/w Dr. Mann - will send to ED for further evaluation. No STEMI at this time . After futher discussion, pt in agreement to go by EMS. Will give ASA, morphin, zofran, IVF Abd Pain Male Course/Dx - Course Course Of Treatment: pt presents with sudden epigastric pain starting t 8am. Pt with h/o reflux - states similar but more intense. Pt with belching with little improvement. no fever, chills No sob, diaphoresis. mild nausea. Pt with stable VS. epigastric pain on exam. Will give GI cocktail and reassess. pt in agreement with plan - Differential Dx/Clinical Impression Provider Diagnoses: intractable epigastric pain - Physician Notification/Consults Discussed Patient Care With: Rudolph Mann - ED Physician Time Discussed With Above Provider: 09:38 Instructed by Provider To: Other - Dr. Mann - discussed case, reviewed EKG - will send to ED for further eval Discharge - Sign-Out/Discharge Documenting (check all that apply): Discharge - Discharge Plan Condition: Stable Disposition: HOME Patient Education Materials: Acute Abdominal Pain (ED) Referrals: Jabier Dickerson MD [Primary Care Provider] - Additional Instructions: As discussed, the doctor that evaluated you recommends you go to the emergency department for further evaluation and treatment of your pain. As discussed, you should go directly to the emergency department at [facility] - they are expecting you. If you symptoms worsen enroute or you have any concerns, call 911 for assistance. - Billing Disposition and Condition Condition: STABLE Disposition: HOME The documentation as recorded by the Miguelina rob Julia accurately reflects the service I personally performed and the decisions made by me, Lady Bustillos MD.
[2017-08-18] MEDS ORDERED: Morphine INJ* 2 MG/ML 1 ML CARPUJECT IV ONE (09:46)
[2017-08-18] MEDS ORDERED: NS 0.9% 1000 ML* 1,000 ML IV ONE (09:46)
[2017-08-18] MEDS ORDERED: Ondansetron INJ* 2 MG/ML VIAL IV ONE (09:46)
[2017-08-18] MEDS ORDERED: Aspirin 81 mg CHEW TAB* 81 MG TAB.CHEW PO ONE ×2 (09:56→09:57)
[2017-08-19] MEDS ORDERED: Aspirin 81 mg CHEW TAB* 81 MG TAB.CHEW PO ONE (09:00)
== END 2017-08-18 10:12 | disposition short-term general hospital (02) ==
LOC: UCEAST 08:29
DX: R10.13 Epigastric pain (principal); R11.0 Nausea; K21.9 Gastro-esophageal reflux disease without esophagitis; Z87.891 Personal history of nicotine dependence
CPT/HCPCS: 93005; 96360; 96375; 96376; 99213; A9270-GY; G0463; J2270; J2405

== ENCOUNTER 2017-08-18 10:24 | Emergency (ER) | payer OTHER ==
[2017-08-18] MEDS ORDERED: NS 0.9% 1000 ML* 1,000 ML IV ONE (10:31)
[2017-08-18] MEDS ORDERED: Ketorolac INJ* 30 MG/ML 1 ML VIAL IV ONE (10:52)
[2017-08-18 11:03] LABS: ABS Basophils 0 10^3/ul (0-0.2); ABS Eosinophils 0.2 10^3/ul (0-0.6); ABS Lymphocytes 1.6 10^3/ul (1.0-4.8); ABS Monocytes 0.5 10^3/ul (0-0.8); ABS Nucleated RBC 0 10^3/ul; Eosinophil % 3.8 % (0-6); Hematocrit 45 % (42-52); Hemoglobin 15.3 g/dl (14.0-18.0); Mean Corpuscular HGB Conc 34 g/dl (31-36); Mean Corpuscular Hemoglobin 29 pg (27-31); Mean Corpuscular Volume 85 fL (80-94); Mean Platelet Volume 8.6 um3 (7.4-10.4); Nucleated Red Blood Cells % 0; Platelet Count 204 10^3/ul (150-450); Red Cell Distribution Width 13 % (10.5-15); White Blood Count 5.3 10^3/ul (3.5-10.8)
[2017-08-18 11:10] LABS: INR 0.98 (0.77-1.02)
--- NOTE | 2017-08-18 11:45 | RAD ---
INDICATION: Epigastric pain COMPARISON: None TECHNIQUE: An AP portable view obtained at 1120 hours is submitted. FINDINGS: Bones/Soft Tissues: There are no acute bony findings. Cardiomediastinal: The cardiomediastinal silhouette is normal. Lungs: There are no infiltrates. Pleura: There are no pleural effusions. Other: None IMPRESSION: NO ACTIVE DISEASE
[2017-08-18 15:06] VITALS: BP 113/72
--- NOTE | 2017-08-18 16:43 | ED ---
Myrna Borjas Nilda, scribed for Mitesh Ramirez MD on 08/18/17 at 1053 . HPI Chest Pain - HPI Summary HPI Summary: This patient is a 32 year old M BIBA from [facility] [place] with a chief complaint of constant mid-sternal chest pain since 0800 this morning upon arriving to work. The patient rates the sharp, aching pain 7/10 in severity. Symptoms aggravated and alleviated by nothing including aspirin, GI cocktail, and morphine given at [facility] [place] [facility]. Pt notes he does not take daily medications. Pt states he used to be a heavy drinker and smoker but has not smoked or drank heavily for the past 5 years. Pt states similar episode CP (though less severe) after cholecystectomy but found it was due to gas. PMHx includes GERD. - History of Current Complaint Time Seen by Provider: 08/18/17 10:35 Hx Obtained From: Patient Onset/Duration: Started Hours Ago, Still Present Timing: Constant Pain Intensity: 7 Pain Scale Used: 0-10 Numeric Chest Pain Location: Mid Sternal Chest Pain Radiates: No Character: Dull/Aching, Sharp/Stabbing Aggravating Factor(s): Nothing Alleviating Factor(s): Nothing - Allergy/Home Medications Allergies/Adverse Reactions: Allergies Allergy/AdvReac Type Severity Reaction Status Date / Time No Known Allergies Allergy Verified 08/18/17 11:09 Home Medications: Home Medications NK [No Home Medications Reported] 08/18/17 [History Confirmed 08/18/17] PMH/Surg Hx/FS Hx/Imm Hx Endocrine/Hematology History: Denies: Hx Diabetes, Hx Thyroid Disease Cardiovascular History: Denies: Hx Hypertension Respiratory History: Denies: Hx Asthma, Hx Chronic Obstructive Pulmonary Disease (COPD) GI History: Denies: Hx Ulcer - Cancer History Cancer Type, Location and Year: none - Surgical History Surgery Procedure, Year, and Place: GALLBLADDER removed Infectious Disease History: Denies: Hx Clostridium Difficile, Hx Hepatitis, Hx Human Immunodeficiency Virus (HIV), Hx of Known/Suspected MRSA, Hx Shingles, Hx Tuberculosis, Hx Known/ Suspected VRE, Hx Known/Suspected VRSA, History Other Infectious Disease - Family History Known Family History: Positive: Cardiac Disease, Diabetes Negative: Other - NO MRSA - Social History Alcohol Use: Rare Alcohol Amount: 1-2 beers Substance Use Type: Reports: Marijuana Substance Use Comment - Amount & Last Used: occassionally Smoking Status (MU): Former Smoker - vapes Type: Cigarettes Amount Used/How Often: 1 ppd Length of Time of Smoking/Using Tobacco: 10 yrs Have You Smoked in the Last Year: No Review of Systems Positive: Chest Pain Negative: Shortness Of Breath All Other Systems Reviewed And Are Negative: Yes Physical Exam - Summary Physical Exam Summary: Appearance: The patient is well-nourished in no acute distress and in no acute pain. Skin: The skin is warm and dry and skin color reflects adequate perfusion. Erythematous rash on L-side of chest. HEENT: The head is normocephalic and atraumatic. The pupils are equal and reactive. The conjunctivae are clear and without drainage. Nares are patent and without drainage. Mouth reveals moist mucous membranes and the throat is without erythema and exudate. The external ears are intact. The ear canals are patent and without drainage. The tympanic membranes are intact. Neck: the neck is supple with full range of motion and non-tender. There are no carotid bruits. There is no neck vein distension. Respiratory: Chest is non-tender. Lungs are clear to auscultation and breath sounds are symmetrical and equal. Cardiovascular: Heart is regular rate and rhythm. There is no murmur or rub auscultated. There is no peripheral edema and pulses are symmetrical and equal. Abdomen: The abdomen is soft and non-tender. There are normal bowel sounds heard in all four quadrants and there is no organomegaly palpated. Musculoskeletal: There is no back tenderness noted. Extremities are non-tender with full range of motion. There is good capillary refill. There is no peripheral edema or calf tenderness elicited. Neurological: Patient is alert and oriented to person, place and time. The patient has symmetrical motor strength in all four extremities. Cranial nerves are grossly intact. Deep tendon reflexes are symmetrical and equal in all four extremities. Psychiatric: The patient has an appropriate affect and does not exhibit any anxiety or depression. Triage Information Reviewed: Yes Vital Signs On Initial Exam: Initial Vitals Pulse Resp BP Pulse Ox 60 15 150/107 98 08/18/17 10:46 08/18/17 10:46 08/18/17 10:46 08/18/17 10:46 Vital Signs Reviewed: Yes Diagnostics - Vital Signs Vital Signs Temp Pulse Resp BP Pulse Ox 08/18/17 15:05 98.9 F 64 15 113/72 97 08/18/17 15:02 60 17 113/72 98 08/18/17 15:00 58 20 97 08/18/17 14:00 20 08/18/17 13:06 68 16 110/92 99 08/18/17 13:00 59 16 99 08/18/17 12:36 66 17 124/68 99 08/18/17 12:06 60 14 122/82 98 08/18/17 12:00 55 17 99 08/18/17 11:36 75 14 122/82 98 08/18/17 11:07 100 08/18/17 11:06 56 17 150/102 99 08/18/17 11:03 100.2 F 58 26 150/102 100 08/18/17 11:01 61 23 99 08/18/17 10:51 56 12 140/101 100 08/18/17 10:47 62 13 99 08/18/17 10:46 60 15 150/107 98 - Laboratory Lab Results: Lab Results 08/18/17 08/18/17 08/18/17 Range/Units 10:53 10:53 10:53 WBC (3.5-10.8) 10^3/ul RBC (4.0-5.4) 10^6/ul Hgb (14.0-18.0) g/dl Hct (42-52) % MCV (80-94) fL MCH (27-31) pg MCHC (31-36) g/dl RDW (10.5-15) % Plt Count (150-450) 10^3/ul MPV (7.4-10.4) um3 Neut % (Auto) (38-83) % Lymph % (Auto) (25-47) % [place] % (Auto) (0-7) % Eos % (Auto) (0-6) % Baso % (Auto) (0-2) % Absolute Neuts (auto) (1.5-7.7) 10^3/ul Absolute Lymphs (auto) (1.0-4.8) 10^3/ul Absolute Monos (auto) (0-0.8) 10^3/ul Absolute Eos (auto) (0-0.6) 10^3/ul Absolute Basos (auto) (0-0.2) 10^3/ul Absolute Nucleated RBC 10^3/ul Nucleated RBC % ESR (0-14) mm/Hr INR (Anticoag Therapy) 0.98 (0.77-1.02) APTT 30.5 (26.0-36.3) seconds Sodium 138 L (139-145) mmol/L Potassium 4.9 (3.5-5.0) mmol/L Chloride 107 (101-111) mmol/L Carbon Dioxide 27 (22-32) mmol/L Anion Gap 4 (2-11) mmol/L BUN 11 (6-24) mg/dL Creatinine 0.88 (0.67-1.17) mg/dL Est GFR ( Amer) 129.9 (>60) Est GFR (Non-Af Amer) 101.0 (>60) BUN/Creatinine Ratio 12.5 (8-20) Glucose 100 (70-100) mg/dL Lactic Acid (0.5-2.0) mmol/L Calcium 9.1 (8.6-10.3) mg/dL Magnesium 2.0 (1.9-2.7) mg/dL Total Bilirubin 0.90 (0.2-1.0) mg/dL AST 30 (13-39) U/L ALT 23 (7-52) U/L Alkaline Phosphatase 59 (34-104) U/L Total Creatine Kinase 77 (10-223) U/L CK-MB (CK-2) 1.1 (0.6-6.3) ng/mL Troponin I 0.00 (<0.04) ng/mL C-Reactive Protein < 1.00 (< 5.00) mg/L B-Natriuretic Peptide 6 ( - 100) pg/mL Total Protein 6.8 (6.4-8.9) g/dL Albumin 4.2 (3.2-5.2) g/dL Globulin 2.6 (2-4) g/dL Albumin/Globulin Ratio 1.6 (1-3) TSH 0.64 (0.34-5.60) mcIU/mL 08/18/17 08/18/17 08/18/17 Range/Units 10:53 10:53 13:36 WBC 5.3 (3.5-10.8) 10^3/ul RBC 5.30 (4.0-5.4) 10^6/ul Hgb 15.3 (14.0-18.0) g/dl Hct 45 (42-52) % MCV 85 (80-94) fL MCH 29 (27-31) pg MCHC 34 (31-36) g/dl RDW 13 (10.5-15) % Plt Count 204 (150-450) 10^3/ul MPV 8.6 (7.4-10.4) um3 Neut % (Auto) 56.0 (38-83) % Lymph % (Auto) 31.0 (25-47) % [place] % (Auto) 8.6 H (0-7) % Eos % (Auto) 3.8 (0-6) % Baso % (Auto) 0.6 (0-2) % Absolute Neuts (auto) 3.0 (1.5-7.7) 10^3/ul Absolute Lymphs (auto) 1.6 (1.0-4.8) 10^3/ul Absolute Monos (auto) 0.5 (0-0.8) 10^3/ul Absolute Eos (auto) 0.2 (0-0.6) 10^3/ul Absolute Basos (auto) 0 (0-0.2) 10^3/ul Absolute Nucleated RBC 0 10^3/ul Nucleated RBC % 0 ESR 6 (0-14) mm/Hr INR (Anticoag Therapy) (0.77-1.02) APTT (26.0-36.3) seconds Sodium (139-145) mmol/L Potassium (3.5-5.0) mmol/L Chloride (101-111) mmol/L Carbon Dioxide (22-32) mmol/L Anion Gap (2-11) mmol/L BUN (6-24) mg/dL Creatinine (0.67-1.17) mg/dL Est GFR ( Amer) (>60) Est GFR (Non-Af Amer) (>60) BUN/Creatinine Ratio (8-20) Glucose (70-100) mg/dL Lactic Acid 0.7 (0.5-2.0) mmol/L Calcium (8.6-10.3) mg/dL Magnesium (1.9-2.7) mg/dL Total Bilirubin (0.2-1.0) mg/dL AST (13-39) U/L ALT (7-52) U/L Alkaline Phosphatase (34-104) U/L Total Creatine Kinase (10-223) U/L CK-MB (CK-2) (0.6-6.3) ng/mL Troponin I 0.00 (<0.04) ng/mL C-Reactive Protein (< 5.00) mg/L B-Natriuretic Peptide ( - 100) pg/mL Total Protein (6.4-8.9) g/dL Albumin (3.2-5.2) g/dL Globulin (2-4) g/dL Albumin/Globulin Ratio (1-3) TSH (0.34-5.60) mcIU/mL Result Diagrams: 08/18/17 10:53 08/18/17 10:53 Lab Statement: Any lab studies that have been ordered have been reviewed, and results considered in the medical decision making process. - Radiology CXR Radiology Interpretation Completed By: Radiologist - no active disease. Dr. Ramirez has reviewed this report. - EKG 1040 Cardiac Rate: Bradycardia EKG Rhythm: Sinus Bradycardia - 55 bpm EKG Interpretation: diffuse upward sloping ST elevation suggesting pericarditis. Re-Evaluation - Re-Evaluation First Eval Re-Evaluation Time: 14:35 Comment: Reviewed labs, imaging, and treatment plan with pt. Chest Pain Course/Dx - Course Course Of Treatment: Mr. Nielsen improved here with ketorolac but he was improving prior to getting it. His W/U was negtive including a d-dimer and delayed troponin. His ECG had some nonspecific changes which could be WNL and could represent pericarditis. His CRP and ESR were WNL which argues against that. - Diagnoses Provider Diagnoses: Chest pain - Provider Notifications Discussed Care Of Patient With: Marii Amin - Cardiology Time Discussed With Above Provider: 12:08 Instructed by Provider To: Other - discussed pt case and agrees to look at EKG. Discharge - Sign-Out/Discharge Documenting (check all that apply): Discharge - home - Discharge Plan Condition: Stable Disposition: HOME Patient Education Materials: Chest Pain (ED) Referrals: Jabier Dickerson MD [Primary Care Provider] - 2 Days Additional Instructions: Take ibuprofen as needed. RETURN TO THE EMERGENCY DEPARTMENT FOR CHANGING OR WORSENING SYMPTOMS. - Billing Disposition and Condition Condition: STABLE Disposition: HOME The documentation as recorded by the Myrna rob Nilda accurately reflects the service I personally performed and the decisions made by me, Mitesh Ramirez MD.
== END 2017-08-18 15:05 | disposition home or self-care (01) ==
LOC: ED 10:24
DX: R07.9 Chest pain, unspecified (principal); Z87.891 Personal history of nicotine dependence; K21.9 Gastro-esophageal reflux disease without esophagitis; R00.1 Bradycardia, unspecified
CPT/HCPCS: 36415; 71045; 80053; 82550; 82553; 83605; 83735; 83880; 84443; 84484; 85025; 85610; 85652; 85730; 86140; 93005; 96360; 96374; 99283; J1885